=== PATIENT | female | born 1965 | race American Indian/Alaskan Native ===

== ENCOUNTER 2016-11-29 16:55 | Emergency (ER) | payer MEDICARE ==
[2016-11-29 17:20] VITALS: BP 106/69
--- NOTE | 2016-11-29 22:20 | XRay Report ---
FINAL REPORT PROCEDURE: XR FOOT 3 LT TECHNIQUE: LEFT foot radiographs, AP, lateral, and oblique views. CPT 13645 HISTORY: LT foot pain swelling/injury COMPARISON: No prior studies are available for comparison. FINDINGS: Fracture (s) and/or Dislocation(s): None . Alignment: Normal . Joint space(s): Normal . Soft tissues: Swelling of the dorsum of the foot. Bone mineralization: Normal . Foreign bodies: None . Calcaneal spurring: Plantar heel spur. IMPRESSION: No fracture seen.
--- NOTE | 2016-11-29 22:51 | Emergency Department Report ---
ED Lower Extremity HPI - General Chief Complaint: Extremity Injury, Lower Stated Complaint: LT FOOT SWOLLEN Time Seen by Provider: 11/29/16 20:50 Source: patient, family Mode of arrival: Ambulatory Limitations: No Limitations - History of Present Illness Initial Comments: Patient here reports left foot is swollen and it's been on and off. She said she had ingrown toenail and noticed that yesterday. She said her foot and ankle is getting swollen and stated that it's painful at her toes. Denies any fever or chills. Denies any nausea or vomiting. She reports pain is 9 out of 10 and cramping. Patient has cervical cancer that has metastasized to her spine so she is on chemotherapy and she has oncologists that she sees currently. She denies any injury to her left foot. She said this started after she had her ingrown toenail. She does not have a primary care physician but she says she hasn't oncologists who is Dr. Gregory. Patient denies any chest pain or shortness of breath. He denies any numbness or tingling to extremities. She denies any pain to her calf. Denies any recent surgery. MD Complaint: other (foot pain and swelling) Onset/Timin -: days(s) Injury: Foot: Left (pain and swelling.) Type of Injury: unknown Place: home Severity: severe Severity scale (0 -10): 9 Improves With: nothing Worsens With: weight bearing, movement, palpation Associated Symptoms: swelling, able to partially bear weight. denies: snap/pop sensation, numbness, tingling, unable to bear weight, ambulatory - Related Data Previous Rx's Medication Instructions Recorded Last Taken Type Ciprofloxacin HCl [Ciprofloxacin 500 mg PO BID #20 tablet 11/13/15 Unknown Rx TAB] Dicyclomine [Bentyl] 10 mg PO QID PRN #20 capsule 11/13/15 Unknown Rx metroNIDAZOLE [Flagyl] 500 mg PO Q8HR #30 tablet 11/13/15 Unknown Rx HYDROcodone/APAP 5-325 [Eastman 1 each PO Q6HR PRN #12 tablet 11/30/16 Unknown Rx 5/325] Sulfamethoxazole/Trimethoprim 1 each PO BID #20 tablet 11/30/16 Unknown Rx [Bactrim DS TAB] Allergies Allergy/AdvReac Type Severity Reaction Status Date / Time No Known Allergies Allergy Verified 11/13/15 15:53 ED Review of Systems ROS: Stated complaint: LT FOOT SWOLLEN Other details as noted in HPI Comment: All other systems reviewed and negative Constitutional: denies: chills, fever Eyes: denies: eye pain, vision change Respiratory: no symptoms reported Cardiovascular: denies: chest pain, palpitations Gastrointestinal: denies: abdominal pain, nausea, vomiting Musculoskeletal: joint swelling, arthralgia. denies: back pain Skin: denies: rash Neurological: denies: headache ED Past Medical Hx - Past Medical History Previous Medical History?: Yes Hx Hypertension: Yes (DENIES CHEST PAIN, SOB) - Surgical History Past Surgical History?: Yes Additional Surgical History: X 3. "FEMALE CANCER FOR CERVICAL CANCER " - Family History Family history: hypertension - Social History Smoking Status: Current Every Day Smoker Substance Use Type: Alcohol - Medications Home Medications: Home Medications Medication Instructions Recorded Confirmed Last Taken Type Ciprofloxacin HCl [Ciprofloxacin 500 mg PO BID #20 tablet 11/13/15 Unknown Rx TAB] Dicyclomine [Bentyl] 10 mg PO QID PRN #20 capsule 11/13/15 Unknown Rx metroNIDAZOLE [Flagyl] 500 mg PO Q8HR #30 tablet 11/13/15 Unknown Rx HYDROcodone/APAP 5-325 [Eastman 1 each PO Q6HR PRN #12 tablet 11/30/16 Unknown Rx 5/325] Sulfamethoxazole/Trimethoprim 1 each PO BID #20 tablet 11/30/16 Unknown Rx [Bactrim DS TAB] ED Physical Exam - General Limitations: No Limitations General appearance: alert, in no apparent distress - Head Head exam: Present: atraumatic, normocephalic, normal inspection - ENT ENT exam: Present: normal exam, normal orophraynx, mucous membranes moist, TM's normal bilaterally, normal external ear exam - Neck Neck exam: Present: normal inspection, full ROM. Absent: tenderness, meningismus, lymphadenopathy - Respiratory Respiratory exam: Present: normal lung sounds bilaterally. Absent: respiratory distress, chest wall tenderness - Cardiovascular Cardiovascular Exam: Present: regular rate, normal rhythm, normal heart sounds - GI/Abdominal GI/Abdominal exam: Present: soft, normal bowel sounds. Absent: distended, tenderness, guarding, rebound, rigid - Extremities Exam Extremities exam: Present: tenderness (left foot), normal capillary refill, pedal edema. Absent: normal inspection, full ROM (Limited range of motion to left foot due to pain), calf tenderness - Expanded Lower Extremity Exam Left Hip exam: Present: normal inspection, full ROM, pelvic stability. Absent: tenderness, swelling, abrasion, laceration, ecchymosis, deformity, crepidus, dislocation, erythema, external rotation, internal rotation, shortening Upper Leg exam: Present: normal inspection, full ROM. Absent: tenderness, swelling, abrasion, laceration, ecchymosis, deformity, crepidus, dislocation, erythema Knee exam: Present: normal inspection, full ROM, full knee extension. Absent: tenderness, swelling, abrasion, laceration, ecchymosis, deformity, crepidus, dislocation, erythema, effusion, pain w/ pronation/supination, posterior draw sign, pain/laxity with valgus, pain/laxity with varus Lower Leg exam: Present: normal inspection, full ROM. Absent: tenderness, swelling, abrasion, laceration, ecchymosis, deformity, crepidus, dislocation, erythema, palpable cord, Christian's sign Ankle exam: Present: normal inspection, full ROM, swelling. Absent: tenderness , abrasion, laceration, ecchymosis, deformity, crepidus, dislocation, erythema, anterior draw sign Foot/Toe exam: Present: normal inspection, full ROM, tenderness, swelling, erythema (mild erythema noted to left anterior foot.). Absent: abrasion, laceration, ecchymosis, deformity, crepidus, dislocation, amputation, puncture wound, foreign body, calcaneal tenderness, tenderness at base of 5th metatarsal , nail avulsion, subungual hematoma Neuro vascular tendon exam: Present: no vascular compromise, significant pain with passive ROM of distal joint. Absent: pulse deficit, abnormal cap refill, motor deficit, sensory deficit, tendon deficit, extremity cold to touch, pallor , abnormal 2-point discrimination, decreased fine/light touch, foot drop, peroneal nerve deficit Gait: Positive: observed and limited by pain - Back Exam Back exam: Present: normal inspection, full ROM. Absent: tenderness, CVA tenderness (R), CVA tenderness (L), muscle spasm, paraspinal tenderness, vertebral tenderness, rash noted - Neurological Exam Neurological exam: Present: alert, oriented X3, abnormal gait (abnormal gait due to). Absent: reflexes normal - Psychiatric Psychiatric exam: Present: normal affect, normal mood - Skin Skin exam: Present: warm, dry, intact, normal color. Absent: rash ED Course Vital Signs 11/29/16 17:18 Temperature 98.2 F Pulse Rate 100 H Respiratory 20 Rate Blood Pressure 106/69 O2 Sat by Pulse 100 Oximetry - Reevaluation(s) Reevaluation #1: 11/29/16 23:54 Patient received clindamycin 600 mg IM and Eastman 5/325 2 tablets by mouth. 11/29/16 23:54 ED Lower Extremity MDM - Radiology Data Radiology results: report reviewed Left foot x-ray reveals soft tissue swelling without any fracture or dislocation. - Medical Decision Making ED course: Discussed the patient that she has cellulitis which is infection of the soft tissue to her left foot. Discussed with her refer her to Dr. Estrada who specializes in feet. Per well's criteria Low risk group for DVT ,Unlikely according to [facility] DVT studies. Discussed with her that she needs to tell her oncologist that she was in the emergency room and treated for cellulitis of her left foot. Pt said that she will and she has an appointment with her oncologist on Tuesday. Patient able to ambulate with limited pain. She was given Eastman 5/325 mg 2 tablets in emergency room for pain and clindamycin 600 mg IM for cellulitis. Discharged home with Eastman and Bactrim DS. Critical care attestation.: If time is entered above; I have spent that time in minutes in the direct care of this critically ill patient, excluding procedure time. ED Disposition Clinical Impression: Cellulitis of left foot, Arthralgia of left foot Disposition: DISCHARGED TO HOME OR SELFCARE Is pt being admited?: No Does the pt Need Aspirin: No Condition: Stable Instructions: Arthralgia (ED), Cellulitis (ED) Additional Instructions: Please take antibiotic as prescribed. Please let your oncologist know that you're treated for cellulitis in emergency room Please do not drive or operate heavy machinery while taking in Eastman as this medication will cause drowsiness Prescriptions: HYDROcodone/APAP 5-325 [Eastman 5/325] 1 each PO Q6HR PRN #12 tablet PRN Reason: Pain Sulfamethoxazole/Trimethoprim [Bactrim DS TAB] 1 each PO BID #20 tablet Referrals: SAIGE GREGORY MD [Staff Physician] - 2-3 Days LENARD PASTOR DPM [Staff Physician] - 2-3 Days Forms: Work/School Release Form(ED), Accompanied Note
[2016-11-29] MEDS ORDERED: NORCO 5/325 PO ONE (23:00)
[2016-11-29] MEDS ORDERED: CLEOCIN IM ONE (23:00)
== END 2016-11-30 00:11 | disposition home or self-care (01) ==
LOC: ED 16:55
DX: L03.116 Cellulitis of left lower limb (principal); I10 Essential (primary) hypertension; F17.200 Nicotine dependence, unspecified, uncomplicated
CPT/HCPCS: 96372; 99283

== ENCOUNTER 2021-01-23 20:35 | Emergency (ER) | payer MEDICARE ==
[2021-01-24] MEDS ORDERED: SODIUM CHLORIDE 0.9% 1000 ML 1,000 ML IV ONE (00:09)
[2021-01-24] MEDS ORDERED: MORPHINE 4 MG/1 ML INJ IV ONE (00:09)
[2021-01-24] MEDS ORDERED: ONDANSETRON 4 MG/2 ML INJ IV ONE (00:09)
[2021-01-24] MEDS ORDERED: ACETAMINOPHEN 650 MG RECT SUPP PR ONE (00:10)
--- NOTE | 2021-01-24 00:15 | Emergency Department Report ---
ED General Adult HPI - General Chief complaint: Urogenital-Female Stated complaint: LT SIDE PAIN/BLEEDING Time Seen by Provider: 01/23/21 23:45 Source: patient Mode of arrival: Ambulatory Limitations: No Limitations - History of Present Illness Initial comments: 55-year-old -[place] female patient with a history of hypertension, PE/DVT, and cervical cancer presents with complaints of sudden onset of left lower abdominal pain and hematuria x3 days. Patient rates her current pain as a 9/10 in severity. She denies any vaginal discharge/dyspareunia, diarrhea/hematochezia/melena, chest pain, cough, or shortness of breath. No history of diverticulitis per patient. Past surgical history includes a C- section. Patient states she went into remission from her cervical cancer in 2015 and her last follow-up was in August 2020-states her ultrasound at that time was normal. She is currently on Xarelto. - Related Data Previous Rx's Medication Instructions Recorded Last Taken Type Dicyclomine [Bentyl] 10 mg PO QID PRN #20 capsule 11/13/15 Unknown Rx metroNIDAZOLE [Flagyl TAB] 500 mg PO Q8HR #30 tablet 11/13/15 Unknown Rx Dicyclomine [Bentyl] 10 mg PO QID PRN #20 capsule 03/08/17 Unknown Rx Ondansetron [Zofran Odt] 4 mg PO Q6H PRN #30 tab.rapdis 03/08/17 Unknown Rx oxyCODONE /ACETAMINOPHEN [Percocet 2 tab PO Q4H PRN #30 tablet 03/08/17 Unknown Rx 5/325 mg] Acetaminophen/Codeine [Tylenol 1 tab PO Q8H PRN #8 tab 01/24/21 Unknown Rx /Codeine # 3 tab] Doxycycline Monohydrate 100 mg PO BID 14 Days #28 capsule 01/24/21 Unknown Rx Naproxen 500 mg PO BID PRN #20 tablet 01/24/21 Unknown Rx metroNIDAZOLE [Flagyl TAB] 500 mg PO Q12HR 7 Days #14 tab 01/24/21 Unknown Rx Allergies Allergy/AdvReac Type Severity Reaction Status Date / Time No Known Allergies Allergy Verified 11/13/15 15:53 ED Review of Systems ROS: Stated complaint: LT SIDE PAIN/BLEEDING Other details as noted in HPI Constitutional: malaise. denies: chills, diaphoresis, weakness Respiratory: denies: cough, shortness of breath Cardiovascular: denies: chest pain Gastrointestinal: abdominal pain, nausea. denies: vomiting, diarrhea, constipation, hematemesis, melena, hematochezia Genitourinary: hematuria. denies: urgency, dysuria, frequency, discharge, abnormal menses, dyspareunia Musculoskeletal: denies: back pain Skin: denies: rash, change in color Neurological: denies: numbness, paresthesias Hematological/Lymphatic: denies: easy bleeding ED Past Medical Hx - Past Medical History Hx Hypertension: Yes Hx CVA: No Hx Heart Attack/AMI: No Hx Diabetes: No Hx Deep Vein Thrombosis: No Hx Pulmonary Embolism: No Hx GERD: No Hx Liver Disease: No Hx Renal Disease: No Hx Sickle Cell Disease: No Hx Arthritis: No Hx Headaches / Migraines: No Hx Seizures: No Hx Kidney Stones: No Hx Asthma: No Hx COPD: No Hx Tuberculosis: No Hx Dementia: No Hx HIV: No Additional medical history: Cervical CA, DVT's, Neuropathy - Surgical History Hx Coronary Stent: No Hx Open Heart Surgery: No Hx Pacemaker: No Hx Internal Defibrillator: No Hx Cholecystectomy: No Hx Appendectomy: No Hx Breast Surgery: No Additional Surgical History: X 3. "FEMALE CANCER FOR CERVICAL CANCER" - Social History Smoking Status: Current Every Day Smoker Substance Use Type: Alcohol, Marijuana - Medications Home Medications: Home Medications Medication Instructions Recorded Confirmed Last Taken Type Dicyclomine [Bentyl] 10 mg PO QID PRN #20 capsule 11/13/15 03/06/17 Unknown Rx metroNIDAZOLE [Flagyl TAB] 500 mg PO Q8HR #30 tablet 11/13/15 03/06/17 Unknown Rx Dicyclomine [Bentyl] 10 mg PO QID PRN #20 capsule 03/08/17 Unknown Rx Ondansetron [Zofran Odt] 4 mg PO Q6H PRN #30 tab.rapdis 03/08/17 Unknown Rx oxyCODONE /ACETAMINOPHEN [Percocet 2 tab PO Q4H PRN #30 tablet 03/08/17 Unknown Rx 5/325 mg] Acetaminophen/Codeine [Tylenol 1 tab PO Q8H PRN #8 tab 01/24/21 Unknown Rx /Codeine # 3 tab] Doxycycline Monohydrate 100 mg PO BID 14 Days #28 capsule 01/24/21 Unknown Rx Naproxen 500 mg PO BID PRN #20 tablet 01/24/21 Unknown Rx metroNIDAZOLE [Flagyl TAB] 500 mg PO Q12HR 7 Days #14 tab 01/24/21 Unknown Rx ED Physical Exam - General Limitations: No Limitations General appearance: alert, in no apparent distress - Head Head exam: Present: atraumatic - Eye Eye exam: Present: normal appearance. Absent: scleral icterus - Neck Neck exam: Present: normal inspection - Respiratory Respiratory exam: Present: normal lung sounds bilaterally. Absent: respiratory distress - Cardiovascular Cardiovascular Exam: Present: regular rate, normal rhythm. Absent: systolic murmur, diastolic murmur, rubs, gallop - GI/Abdominal GI/Abdominal exam: Present: soft, tenderness (Left suprapubic/left lower quadrant). Absent: distended, guarding, rebound, rigid - Back Exam Back exam: Present: full ROM. Absent: CVA tenderness (R), CVA tenderness (L) - Neurological Exam Neurological exam: Present: alert, oriented X3, normal gait - Psychiatric Psychiatric exam: Present: normal affect, normal mood - Skin Skin exam: Present: warm, dry, intact, normal color. Absent: rash, diaphoretic, ecchymosis ED Course Vital Signs 01/23/21 01/24/21 01/24/21 20:43 02:15 05:10 Temperature 101.2 F H 99.6 F Pulse Rate 114 H 86 76 Respiratory 18 17 16 Rate Blood Pressure 112/59 Blood Pressure 102/63 [Left] O2 Sat by Pulse 97 96 100 Oximetry ED Medical Decision Making - Lab Data Result diagrams: 01/24/21 00:29 01/24/21 00:29 Lab Results 01/24/21 01/24/21 01/24/21 Range/Units 00:29 00:29 00:29 WBC 3.0 L (4.5-11.0) K/mm3 RBC 4.06 (3.65-5.03) M/mm3 Hgb 13.1 (10.1-14.3) gm/dl Hct 38.4 (30.3-42.9) % MCV 95 (79-97) fl MCH 32 (28-32) pg MCHC 34 (30-34) % RDW 15.9 H (13.2-15.2) % Plt Count 222 (140-440) K/mm3 Lymph % (Auto) 45.4 H (13.4-35.0) % Graves % (Auto) 11.7 H (0.0-7.3) % Eos % (Auto) 0.4 (0.0-4.3) % Baso % (Auto) 0.4 (0.0-1.8) % Lymph # (Auto) 1.4 (1.2-5.4) K/mm3 Graves # (Auto) 0.4 (0.0-0.8) K/mm3 Eos # (Auto) 0.0 (0.0-0.4) K/mm3 Baso # (Auto) 0.0 (0.0-0.1) K/mm3 Seg Neutrophils % 42.1 (40.0-70.0) % Seg Neutrophils # 1.3 L (1.8-7.7) K/mm3 Sodium 136 L (137-145) mmol/L Potassium 3.8 (3.6-5.0) mmol/L Chloride 98.7 (98-107) mmol/L Carbon Dioxide 24 (22-30) mmol/L Anion Gap 17 mmol/L BUN 9 (7-17) mg/dL Creatinine 0.7 (0.6-1.2) mg/dL Estimated GFR > 60 ml/min BUN/Creatinine Ratio 13 % Glucose 104 H (65-100) mg/dL Lactic Acid 0.70 (0.7-2.0) mmol/L Calcium 8.3 L (8.4-10.2) mg/dL Total Bilirubin 0.50 (0.1-1.2) mg/dL AST 22 (5-40) units/L ALT 12 (7-56) units/L Alkaline Phosphatase 119 (35-129) units/L Total Protein 7.8 (6.3-8.2) g/dL Albumin 4.1 (3.9-5) g/dL Albumin/Globulin Ratio 1.1 % Urine Color (Yellow) Urine Turbidity (Clear) Urine pH (5.0-7.0) Ur Specific Quinton (1.003-1.030) Urine Protein (Negative) mg/dL Urine Glucose (UA) (Negative) mg/dL Urine Ketones (Negative) mg/dL Urine Blood (Negative) Urine Nitrite (Negative) Urine Bilirubin (Negative) Urine Urobilinogen (<2.0) mg/dL Ur Leukocyte Esterase (Negative) Urine WBC (Auto) (0.0-6.0) /HPF Urine RBC (Auto) (0.0-6.0) /HPF U Epithel Cells (Auto) (0-13.0) /HPF Urine Mucus /HPF 01/24/21 Range/Units 00:51 WBC (4.5-11.0) K/mm3 RBC (3.65-5.03) M/mm3 Hgb (10.1-14.3) gm/dl Hct (30.3-42.9) % MCV (79-97) fl MCH (28-32) pg MCHC (30-34) % RDW (13.2-15.2) % Plt Count (140-440) K/mm3 Lymph % (Auto) (13.4-35.0) % Graves % (Auto) (0.0-7.3) % Eos % (Auto) (0.0-4.3) % Baso % (Auto) (0.0-1.8) % Lymph # (Auto) (1.2-5.4) K/mm3 Graves # (Auto) (0.0-0.8) K/mm3 Eos # (Auto) (0.0-0.4) K/mm3 Baso # (Auto) (0.0-0.1) K/mm3 Seg Neutrophils % (40.0-70.0) % Seg Neutrophils # (1.8-7.7) K/mm3 Sodium (137-145) mmol/L Potassium (3.6-5.0) mmol/L Chloride (98-107) mmol/L Carbon Dioxide (22-30) mmol/L Anion Gap mmol/L BUN (7-17) mg/dL Creatinine (0.6-1.2) mg/dL Estimated GFR ml/min BUN/Creatinine Ratio % Glucose (65-100) mg/dL Lactic Acid (0.7-2.0) mmol/L Calcium (8.4-10.2) mg/dL Total Bilirubin (0.1-1.2) mg/dL AST (5-40) units/L ALT (7-56) units/L Alkaline Phosphatase (35-129) units/L Total Protein (6.3-8.2) g/dL Albumin (3.9-5) g/dL Albumin/Globulin Ratio % Urine Color Yellow (Yellow) Urine Turbidity Slightly-cloudy (Clear) Urine pH 5.0 (5.0-7.0) Ur Specific [place] 1.020 (1.003-1.030) Urine Protein 30 mg/dl (Negative) mg/dL Urine Glucose (UA) Neg (Negative) mg/dL Urine Ketones Neg (Negative) mg/dL Urine Blood Neg (Negative) Urine Nitrite Neg (Negative) Urine Bilirubin Neg (Negative) Urine Urobilinogen 4.0 (<2.0) mg/dL Ur Leukocyte Esterase Mod (Negative) Urine WBC (Auto) 12.0 H (0.0-6.0) /HPF Urine RBC (Auto) 8.0 (0.0-6.0) /HPF U Epithel Cells (Auto) 7.0 (0-13.0) /HPF Urine Mucus Few /HPF - Radiology Data Radiology results: report reviewed CT ABDOMEN AND PELVIS WITH CONTRAST INDICATION / CLINICAL INFORMATION: acute suprapubic/left lower abdominal pain. TECHNIQUE: Axial CT images were obtained through the abdomen and pelvis after Omnipaque 350, 100 cc IV contrast. All CT scans at this location are performed using CT dose reduction for ALARA by means of automated exposure control. COMPARISON: CT abdomen and pelvis 03/06/2017. FINDINGS: LOWER CHEST: Peripheral interstitial disease is seen at the lung bases left greater than right. LIVER: Large, fatty liver. One CM cyst medial segment left hepatic lobe. GALLBLADDER: No significant abnormality. BILE DUCTS: No significant abnormality. PANCREAS: No significant abnormality. SPLEEN: No significant abnormality. ADRENALS: No significant abnormality. RIGHT KIDNEY / URETER: No significant abnormality. LEFT KIDNEY / URETER: No significant abnormality. STOMACH / SMALL BOWEL: No significant abnormality. COLON: Scattered noninflamed colonic diverticulosis. APPENDIX: No significant abnormality. PERITONEUM: No free fluid. No free air. No fluid collection. LYMPH NODES: No significant adenopathy. VASCULAR STRUCTURES: No significant abnormality. URINARY BLADDER: No significant abnormality. REPRODUCTIVE ORGANS: No significant abnormality. ADDITIONAL FINDINGS: None. SKELETAL SYSTEM: Partial compression of L3 with previous vertebroplasty. IMPRESSION: 1. Noninflamed colonic diverticulosis. 2. Changes at the lung bases likely related to previous Covid infection. - Medical Decision Making 55-year-old -[place] female patient with a history of hypertension, PE/DVT, and cervical cancer presents with complaints of sudden onset of left lower abdominal pain and hematuria x3 days. Patient rates her current pain as a 9/10 in severity. She denies any vaginal discharge/dyspareunia, diarrhea/ hematochezia/melena, chest pain, cough, or shortness of breath. No history of diverticulitis per patient. Past surgical history includes a . Patient states she went into remission from her cervical cancer in 2015 and her last follow-up was in August 2020-states her ultrasound at that time was normal. She is currently on Xarelto. Patient noted to be tacky with a fever 101.[address] abdomen negative for any acute abnormalities. Patient denied any STI symptoms, however on pelvic exam copious greenish discharge noted. Wet prep shows trichomonas. Patient also has CMT on pelvic exam. Will treat for PID with Rocephin, doxy, and metronidazole. Discussed importance of follow-up with ADVERTISING REP and primary care doctor within 3 days. Patient also to inform her sexual partner to get tested and treated and refrain from any sexual intercourse for period of 3 weeks. Patient is well-appearing, her vitals are now normal, and she is stable for discharge home. Strict return precautions discussed in great detail with patient who verbalizes understanding. Critical care attestation.: If time is entered above; I have spent that time in minutes in the direct care of this critically ill patient, excluding procedure time. ED Disposition Clinical Impression: Acute PID (pelvic inflammatory disease), Trichomonas infection Disposition: TO HOME OR SELFCARE Is pt being admited?: No Condition: Stable Instructions: Trichomoniasis, Pelvic Inflammatory Disease Prescriptions: Doxycycline Monohydrate 100 mg PO BID 14 Days #28 capsule metroNIDAZOLE [Flagyl TAB] 500 mg PO Q12HR 7 Days #14 tab Naproxen 500 mg PO BID PRN #20 tablet PRN Reason: Pain, Moderate (4-6) Acetaminophen/Codeine [Tylenol /Codeine # 3 tab] 1 tab PO Q8H PRN #8 tab PRN Reason: Pain , Severe (7-10) Referrals: HUMBERTO FONSECA MD [Primary Care Provider] - 2-3 Days
[2021-01-24 00:54] LABS: Basophils % (Auto) 0.4 % (0.0-1.8); Eosinophils % (Auto) 0.4 % (0.0-4.3); Hematocrit 38.4 % (30.3-42.9); Hemoglobin 13.1 gm/dl (10.1-14.3); Lymphocytes # (Auto) 1.4 K/mm3 (1.2-5.4); Lymphocytes % (Auto) 45.4 % (13.4-35.0); Mean Corpuscular HGB Conc 34 % (30-34); Mean Corpuscular Volume 95 fl (79-97); Monocytes # (Auto) 0.4 K/mm3 (0.0-0.8); Monocytes % (Auto) 11.7 % (0.0-7.3); Platelet Count 222 K/mm3 (140-440); Red Blood Count 4.06 M/mm3 (3.65-5.03); Red Cell Distribution Width 15.9 % (13.2-15.2)
[2021-01-24 01:15] LABS: Alanine Aminotransferase 12 units/L (7-56); Albumin 4.1 g/dL (3.9-5); Blood Urea Nitrogen 9 mg/dL (7-17); Calcium 8.3 mg/dL (8.4-10.2); Hemolysis Index 30
[2021-01-24 01:40] LABS: BUN/Creatinine Ratio 13
[2021-01-24 01:46] LABS: Bilirubin,Urine NEG (Negative); Blood,Urine NEG (Negative); Color,Urine Yellow (Yellow); Mucus,Urine FEW /HPF
--- NOTE | 2021-01-24 02:28 | Cat Scan Report ---
CT ABDOMEN AND PELVIS WITH CONTRAST INDICATION / CLINICAL INFORMATION: acute suprapubic/left lower abdominal pain. TECHNIQUE: Axial CT images were obtained through the abdomen and pelvis after Omnipaque 350, 100 cc I V contrast. All CT scans at this location are performed using CT dose reduction for ALARA by means o f automated exposure control. COMPARISON: CT abdomen and pelvis 03/06/2017. FINDINGS: LOWER CHEST: Peripheral interstitial disease is seen at the lung bases left greater than right. LIVER: Large, fatty liver. One CM cyst medial segment left hepatic lobe. GALLBLADDER: No significant abnormality. BILE DUCTS: No significant abnormality. PANCREAS: No significant abnormality. SPLEEN: No significant abnormality. ADRENALS: No significant abnormality. RIGHT KIDNEY / URETER: No significant abnormality. LEFT KIDNEY / URETER: No significant abnormality. STOMACH / SMALL BOWEL: No significant abnormality. COLON: Scattered noninflamed colonic diverticulosis. APPENDIX: No significant abnormality. PERITONEUM: No free fluid. No free air. No fluid collection. LYMPH NODES: No significant adenopathy. VASCULAR STRUCTURES: No significant abnormality. URINARY BLADDER: No significant abnormality. REPRODUCTIVE ORGANS: No significant abnormality. ADDITIONAL FINDINGS: None. SKELETAL SYSTEM: Partial compression of L3 with previous vertebroplasty. IMPRESSION: 1. Noninflamed colonic diverticulosis. 2. Changes at the lung bases likely related to previous Covid infection. Signer Name: Leonel Garcia MD Signed: 01/24/2021 2:24 AM Workstation Name: [id number]
[2021-01-24] MEDS ORDERED: KETOROLAC 30 MG/1 ML INJ IV ONE (02:37)
[2021-01-24] MEDS ORDERED: cefTRIAXone/NS 1 GM/50 ML 1 GM/50 ML BAG IV ONE (02:52)
[2021-01-24] MEDS ORDERED: LIDOCAINE-MPF (1%) 10 MG/1 ML VIAL 5 ML INFILTRATI ONE (03:18)
[2021-01-24 05:55] VITALS: BP 102/63
== END 2021-01-24 05:10 | disposition home or self-care (01) ==
LOC: ED 20:35
DX: N73.0 Acute parametritis and pelvic cellulitis (principal); A59.9 Trichomoniasis, unspecified; I10 Essential (primary) hypertension; F17.200 Nicotine dependence, unspecified, uncomplicated; F12.10 Cannabis abuse, uncomplicated; Z98.890 Other specified postprocedural states; Z79.899 Other long term (current) drug therapy
CPT/HCPCS: 36415; 74177; 80053; 81001; 82140; 85025; 87040; 87086; 87210; 87591; 96361; 96372; 96374; 96375; 99284; J0696; J1885; J2270; J2405; J7030; Q9967